=== PATIENT | female | born 1970 | race Caucasian/White ===

== ENCOUNTER → 2024-09-11 14:08 | Emergency (ER) | payer BC, SELFPAY ==
[2024-09-11 14:09] VITALS: BP 122/89
[2024-09-11 14:42] VITALS: BP 135/90
[2024-09-11 14:44] VITALS: BMI 26.6
--- NOTE | 2024-09-11 15:12 | ED.GENMED ---
History of Present Illness
General
Chief Complaint: Musculo-Skeletal Complaint
Source: patient
Time Seen by Provider: 09/11/24 14:24
History of Present Illness
History of Present Illness:
54yoF with a history of Kristine Danlos syndrome, hypertension, hyperlipidemia, asthma, and peptic ulcer disease presenting for evaluation of right rib pain. Patient was reaching over a railing 8 days ago when she flipped over the railing and fell.
She injured her right anterior rib cage during the incident. She has been having ongoing rib pain since then which has been worsening over the past 3 days. Pain is worse with breathing. She has been using Tylenol with mild improvement. She
denies any other injuries from the fall.
Past History
Past History
ED Past Medical History: Arrthythmia (a fib with ablation), Asthma, CHF (2016), HTN, Hypercholesterolemia and Other (anemia, Upper GI bleeding, TIA X 2, Migraines, Kristine-Danlos)
ED Past Surgical History: Appendectomy, Cardiac (Mitral valve Repair many years ago, mitral valve replacement and tricuspid valve repair 2019, Albation X 2), Orthopedic (Right hip replaced) and Other (hernia repair X 2)
Social History
Tobacco: Former smoker
Alcohol: None
Personal:
Living: with family
Phy Exam
General Physical Exam
General Presentation: well appearing and no apparent distress
General age: appears stated age
General Skin: warm and dry
General Mental: alert
ENT Exam
ENT Exam: normocephalic
Pulmonary Exam
Pulmonary Exam: lungs clear, no respiratory distress, no crackles, no wheezing and other (+R anterior rib tenderness underneath R breast. No skin changes or crepitus.)
Gastrointestinal Exam
Gastrointestinal Exam: non tender, soft and non distended
[place] Coma Scale
Eye Opening: Spontaneous
Verbal Response: Oriented
Motor Response: Obeys Commands
GCS Total Score: 15
Skin Exam
Skin Exam: normal color and warm/dry
Psychiatric Exam
Psychiatric Exam: normal mood/affect
Course
Orders/Labs/Results
Orders:
Orders
09/11/24 14:14
CR Ribs-right 3 Vw W/pa Chest* Urgent
Comment:
Reason For Exam: fall
Vital Signs
Initial and Last Documented VS:
Initial Vital Signs
Temp Pulse Resp BP Pulse Ox
97.7 F 96 18 122/89 99
09/11/24 14:09 09/11/24 14:09 09/11/24 14:09 09/11/24 14:09 09/11/24 14:09
Last Documented Vital Signs
Temp Pulse Resp BP Pulse Ox
97.7 F 90 16 135/90 96
09/11/24 14:09 09/11/24 14:42 09/11/24 14:42 09/11/24 14:42 09/11/24 14:42
MDM/Problems Addressed
Differential Diagnosis Includes:
54yoF here with R rib pain after an injury 8 days ago. C/o pain with breathing. Vitals stable and oxygen saturation 99% on room air. There is reproducible chest wall tenderness on exam. No crepitus or skin changes. Lung sounds equal bilaterally. No
abdominal tenderness. Differential diagnosis includes but is not limited to: rib sprain, contusion, fracture, doubt pneumothorax
Rib series x-rays obtained which are negative for acute fractures. Patient stable for discharge. Supportive care discussed. Advised f/u with PCP. She expressed understanding and is agreeable to plan. She was discharged in stable condition.
*Critical Care Note
Total Time (30-74mins, 75-104mins- exclusive of procedures): Not Applicable
ED Attending Note
-
Portions of this chart may have been created with voice recognition software.� Occasional wrong word or��sound alike� substitutions may have occurred due to the inherent limitations of voice recognition software.
Discharge Plan
Departure
Patient Disposition: Home (Routine Discharge)
Date of Disposition: 09/11/24
Time of Disposition: 15:14
Patient with high blood pressure during this ER visit?: No
Discharge Problem:
Traumatic injury of rib
Instructions: Bruised Rib (DC)
Prescriptions:
No Action
venlafaxine [Effexor XR] 37.5 mg Capsule,Extended Release 24hr
75 mg PO HS
butalbital-acetaminophen 50-325 mg Tablet
1 - 2 tab PO Q4H PRN (Reason: Migraine Headache)
aspirin 81 mg Tablet,Delayed Release (Dr/Ec)
81 mg PO HS
alprazolam [Xanax] 0.5 mg Tablet
0.5 mg PO HS
bupropion HCl [Wellbutrin XL] 300 mg Tablet Extended Release 24 Hr
300 mg PO DAILY
topiramate [Topamax] 50 mg Tablet
75 mg PO BID
Activity Restrictions/Additional Instructions:
Apply heat to affected area. Use lidocaine patches daily (12 hours on, 12 hours off). Take Tylenol 650mg every 6 hours as needed for pain.
Please follow-up with your family doctor. Return to the ER with any worsening symptoms.
Interventions
Interventions:
*Risk Screen - Suicide Last Done: 09/11/24 14:09
*General Assessment Last Done: 09/11/24 14:09
*Neglect/Abuse Screening Last Done: 09/11/24 14:09
ED- Fall Risk Assessment Last Done: 09/11/24 15:33
*ED COVID-19 Vaccine History Last Done: 09/11/24 14:37
*Nursing Disposition Last Done: 09/11/24 15:33
ED-Musculoskeletal Assessment Last Done: 09/11/24 14:37
Discharge Date and Time
Print Language: DIVEHI
== END | disposition home or self-care (01) ==
LOC: EMR 14:08
PROVIDERS: EMERGENCY PHYSICIAN Emergency Medicine
DX: S29.9XXA Unspecified injury of thorax, initial encounter (principal); I11.0 Hypertensive heart disease with heart failure; I50.9 Heart failure, unspecified; E78.00 Pure hypercholesterolemia, unspecified; W19.XXXA Unspecified fall, initial encounter; Z87.891 Personal history of nicotine dependence
CPT/HCPCS: 99283; 71101

== ENCOUNTER → 2025-02-06 13:35 | Outpatient (REF) | payer BC, SELFPAY | LOC: DHSLP 13:35 | PROVIDERS: ATTENDING PHYSICIAN Psychiatry & Neurology Neurology | DX: G47.30 Sleep apnea, unspecified (principal); R06.83 Snoring | CPT/HCPCS: 95800 ==